=== PATIENT | male | born 1970 | race Hispanic/Latino ===

== ENCOUNTER 2023-07-31 14:25 | Emergency (ER) | payer OTHER ==
[~2023-07-31] VITALS: Ht 162.6 cm; Wt 51.7 kg
[2023-07-31 14:26] VITALS: BP 100/70; PULSE 85; RESP 18
[2023-07-31] MEDS: PREDNISONE 20 MG TABLET PO ONE ×2 (14:56→15:15)
[2023-07-31] MEDS: KETOROLAC 60 MG VIAL (30MG/ML) IM ONE ×2 (15:00→15:15)
== END 2023-07-31 15:20 | disposition home or self-care (01) ==
LOC: EDH 14:25
DX: G89.29 Other chronic pain (principal); F41.9 Anxiety disorder, unspecified; F32.A Depression, unspecified; Z76.5 Malingerer [conscious simulation]; Z98.890 Other specified postprocedural states
CPT/HCPCS: 99282; J1885

== ENCOUNTER 2023-08-04 05:27 | Emergency (ER) | payer OTHER ==
[~2023-08-04] VITALS: Ht 162.6 cm; Wt 49.9 kg
[2023-08-04] MEDS ORDERED: KETOROLAC 30MG VIAL (30MG/ML) IVP ONE (08:00)
[2023-08-04] MEDS ORDERED: FAMOTIDINE 20MG VIAL IV ONE (08:00)
[2023-08-04] MEDS ORDERED: METOCLOPRAMIDE 10 MG/2 ML VIAL IVP ONE (08:00)
[2023-08-04 08:15] VITALS: BP 106/74; PULSE 71; RESP 16; O2SAT 100
[2023-08-04] MEDS ORDERED: MELO-106 PO (08:55)
== END 2023-08-04 09:08 | disposition home or self-care (01) ==
LOC: EDH 05:27
DX: M47.816 Spondylosis without myelopathy or radiculopathy, lumbar region (principal); G89.29 Other chronic pain; F41.9 Anxiety disorder, unspecified; F32.A Depression, unspecified; Z59.01 Sheltered homelessness
CPT/HCPCS: 99285; 96374; 72131; 96375; 72100; J3490; J1885; J2765